=== PATIENT | female | born 1950 | race Caucasian/White ===

== ENCOUNTER 2023-07-06 18:02 | Emergency (ER) | payer OTHER ==
[~2023-07-06] VITALS: Ht 149.9 cm; Wt 43.1 kg
[2023-07-06 18:02] VITALS: BP_SYST 174; PULSE 80; RESP 18; TEMP 97.2; O2SAT 98
[~2023-07-06 18:02] MED LIST: ASPI-1155 PO; CORCR40 PO; DEC4 PO; HYDR-4037 PO; LEVO250T73 PO; NOR10 PO; SIMV-46 PO
[2023-07-06 22:47] VITALS: BP_SYST 145; PULSE 88; RESP 20; TEMP 98.8; O2SAT 99
== END 2023-07-06 22:47 | disposition home or self-care (01) ==
LOC: SED 18:02
DX: S20.212A Contusion of left front wall of thorax, initial encounter (principal); S70.02XA Contusion of left hip, initial encounter; I10 Essential (primary) hypertension; Z79.899 Other long term (current) drug therapy; W06.XXXA Fall from bed, initial encounter; Y93.89 Activity, other specified; Y92.89 Other specified places as the place of occurrence of the external cause; Y99.8 Other external cause status
CPT/HCPCS: 70450-TC; 71100; 72192-TC; 76376; 99284